=== PATIENT | male | born 1955 | race Caucasian/White ===

== ENCOUNTER 2017-10-22 14:57 | Inpatient (IN) | payer BC, OTHER ==
[~2017-10-22] VITALS: Ht 180.3 cm; Wt 69.9 kg
[2017-10-22 16:04] LABS: HEMOGLOBIN 13.8 g/dL (13.7-18.0)
[2017-10-22 16:17] LABS: ASPARTATE AMINO TRANSFERASE 33 U/L (15-37); BLOOD UREA NITROGEN 19 mg/dL (7-18)
[2017-10-22 16:32] LABS: DIFF TOTAL CELLS COUNTED 100 CELL DIFF
[2017-10-22 16:33] LABS: VERIFY COUNTS? YES
[2017-10-22] MEDS ORDERED: morphine SULFATE 10 MG/ML, 1ML ONE (17:59)
[2017-10-22] MEDS ORDERED: ONDANSETRON 2MG/ML, 2ML ONE (17:59)
[2017-10-22] MEDS ORDERED: SODIUM CHLORIDE 0.9% 1,000ML IVBOLUS ONE (19:00)
[2017-10-22] MEDS ORDERED: SODIUM CHLORIDE FLUSH 10ML SYR IVF ONE (19:00)
[2017-10-22] MEDS ORDERED: MORPHINE SULFATE 4 MG/ML, 1ML IVPush PRN (19:00)
[2017-10-22] MEDS ORDERED: ONDANSETRON 2MG/ML, 2ML IVPush ONE (19:00)
[2017-10-22] MEDS ORDERED: METO-99 PO (19:41)
[2017-10-22] MEDS ORDERED: ESCI10TA PO (19:41)
[2017-10-22] MEDS ORDERED: LEVO112T4 PO (19:41)
[2017-10-22] MEDS ORDERED: ATOR20TA PO (19:41)
[2017-10-22] MEDS ORDERED: TRAV5DRO EACHEYE (19:41)
[2017-10-22] MEDS ORDERED: BUDE10.2 INH (19:41)
[2017-10-22] MEDS ORDERED: AMLO5TAB2 PO (19:41)
[2017-10-22] MEDS ORDERED: LOSA100T6 PO (19:41)
[2017-10-22] MEDS ORDERED: morphine SULFATE 10 MG/ML, 1ML IVPush PRN (20:00)
[2017-10-22] MEDS ORDERED: TEMAZEPAM 15 MG CAPSULE PO PRN (20:00)
[2017-10-22] MEDS ORDERED: PHARMACY MAY ADJ FOR RENAL FX MC PRN (20:30)
[2017-10-22] MEDS: CIPROFLOXACIN/PMX 400MG/200ML 200 ML IV SCH (21:12)
[2017-10-22] MEDS: HEPARIN 5,000 UNITS/ML, 1ML SQ SCH (21:12)
[2017-10-22] MEDS: ATORVASTATIN 20 MG TABLET PO SCH (21:46)
[2017-10-22] MEDS: METOPROLOL TARTRATE 100 MG TABLET PO SCH (21:46)
[2017-10-22 21:51] VITALS: BP 143/90
[2017-10-22] MEDS: ONDANSETRON ODT 4 MG PO PRN (22:10)
[2017-10-22] MEDS: HYDROcodone/APAP 5/325 TABLET PO PRN (22:37)
[2017-10-22] MEDS: LATANOPROST OPHTH 0.005%, 2.5ML EACHEYE SCH (22:42)
[2017-10-23 01:04] VITALS: BP 155/90
[2017-10-23] MEDS: ONDANSETRON ODT 4 MG PO PRN (02:04)
[2017-10-23 04:06] LABS: HEMATOCRIT 38.7 % (39.2-51.8); HEMOGLOBIN 13.1 g/dL (13.7-18.0); WHITE BLOOD COUNT 12.6 x10^3/uL (3.4-10)
[2017-10-23 04:15] LABS: BLOOD UREA NITROGEN 13 mg/dL (7-18)
[2017-10-23] MEDS: SENNA/DOCUSATE TABLET PO SCH (04:19)
[2017-10-23] MEDS: HEPARIN 5,000 UNITS/ML, 1ML SQ SCH ×3 (05:36→20:45)
[2017-10-23 07:38] VITALS: BP 157/82
[2017-10-23 07:45] VITALS: BP 129/91
[2017-10-23] MEDS ORDERED: PROCHLORPERAZINE 5 MG/ML, 2ML IVPush ONE (08:30)
[2017-10-23] MEDS: CIPROFLOXACIN/PMX 400MG/200ML 200 ML IV SCH ×2 (08:58→20:40)
[2017-10-23] MEDS ORDERED: TRAVOPROST OPHTH 0.004%, 2.5ML EACHEYE SCH (09:00)
[2017-10-23] MEDS: CITALOPRAM 20 MG TABLET PO SCH (09:01)
[2017-10-23] MEDS: FLUTICASONE/VILANTEROL 200-25MCG/INH INH SCH (09:01)
[2017-10-23] MEDS: METOPROLOL TARTRATE 100 MG TABLET PO SCH ×2 (09:01→20:39)
[2017-10-23] MEDS: AMLODIPINE 5 MG TABLET PO SCH (09:02)
[2017-10-23] MEDS: LEVOTHYROXINE 112 MCG TABLET PO SCH (09:02)
[2017-10-23] MEDS: LOSARTAN 50MG TABLET PO SCH (09:02)
[2017-10-23] MEDS ORDERED: PROCHLORPERAZINE 5 MG TABLET PO PRN (10:30)
[2017-10-23] MEDS: HYDROcodone/APAP 5/325 TABLET PO PRN ×2 (13:58→23:44)
[2017-10-23 15:47] VITALS: BP 118/67
[2017-10-23 20:24] VITALS: BP 146/89
[2017-10-23] MEDS: LATANOPROST OPHTH 0.005%, 2.5ML EACHEYE SCH (20:39)
[2017-10-23] MEDS: ATORVASTATIN 20 MG TABLET PO SCH (20:39)
[2017-10-24 02:30] VITALS: BP 148/78
[2017-10-24] MEDS: HEPARIN 5,000 UNITS/ML, 1ML SQ SCH ×2 (05:00→12:19)
[2017-10-24 05:36] LABS: BLOOD UREA NITROGEN 11 mg/dL (7-18)
[2017-10-24] MEDS: LEVOTHYROXINE 112 MCG TABLET PO SCH (05:37)
[2017-10-24 05:57] LABS: HEMATOCRIT 37.8 % (39.2-51.8); HEMOGLOBIN 12.9 g/dL (13.7-18.0); WHITE BLOOD COUNT 8.9 x10^3/uL (3.4-10)
[2017-10-24 06:41] LABS: DIFF TOTAL CELLS COUNTED 200 CELL DIFF; VERIFY COUNTS? YES
[2017-10-24] MEDS: CIPROFLOXACIN/PMX 400MG/200ML 200 ML IV SCH (08:00)
[2017-10-24] MEDS: CITALOPRAM 20 MG TABLET PO SCH (08:01)
[2017-10-24] MEDS: FLUTICASONE/VILANTEROL 200-25MCG/INH INH SCH (08:01)
[2017-10-24] MEDS: AMLODIPINE 5 MG TABLET PO SCH (08:02)
[2017-10-24] MEDS: METOPROLOL TARTRATE 100 MG TABLET PO SCH (08:02)
[2017-10-24] MEDS: LOSARTAN 50MG TABLET PO SCH (08:02)
[2017-10-24] MEDS: SENNA/DOCUSATE TABLET PO SCH (08:03)
[2017-10-24] MEDS: HYDROcodone/APAP 5/325 TABLET PO PRN ×2 (08:20→08:22)
[2017-10-24 08:26] VITALS: BP 138/76
[2017-10-24] MEDS ORDERED: HYDR-883 PO (10:25)
[2017-10-24] MEDS ORDERED: CIPR500T87 PO (10:25)
== END 2017-10-24 12:46 | disposition home health service (06) | DRG 728 ==
LOC: ED 16:57 → EDIP 19:18 → 3NE 20:35 → DCLOUNGE 10-24 12:34
PROVIDERS: ADMIT Family Medicine; ATTEND Family Medicine
DX: N41.0 Acute prostatitis (principal); N17.9 Acute kidney failure, unspecified; I13.10 Hypertensive heart and chronic kidney disease without heart failure, with stage 1 through stage 4 chronic kidney disease, or unspecified chronic kidney disease; N18.9 Chronic kidney disease, unspecified; N40.1 Benign prostatic hyperplasia with lower urinary tract symptoms; D72.829 Elevated white blood cell count, unspecified; E03.9 Hypothyroidism, unspecified; E78.00 Pure hypercholesterolemia, unspecified; E78.5 Hyperlipidemia, unspecified; R33.8 Other retention of urine; R00.0 Tachycardia, unspecified; R73.03 Prediabetes; Z82.49 Family history of ischemic heart disease and other diseases of the circulatory system; Z87.442 Personal history of urinary calculi; Z98.49 Cataract extraction status, unspecified eye; Z88.0 Allergy status to penicillin
CPT/HCPCS: 36415; 74176; 80048; 80053; 81001; 85025; 87086; 96361; 96374; 96375; J0744; J1644; J2405; Q0162; J0780; J7030

== ENCOUNTER 2018-01-09 09:07 | Emergency (ER) | payer BC ==
[~2018-01-09] VITALS: Ht 180.3 cm; Wt 70.3 kg
[~2018-01-09 09:07] MED LIST: AMLO5TAB2 PO; ATOR20TA PO; BUDE10.2 INH; CIPR500T87 PO; ESCI10TA PO; HYDR-883 PO; LEVO112T4 PO; LOSA100T6 PO; METO-99 PO; TRAV5DRO EACHEYE
[2018-01-09] MEDS ORDERED: SODIUM CHLORIDE 0.9% 1,000 ML IV ONE (12:53)
[2018-01-09] MEDS ORDERED: ONDANSETRON 2MG/ML, 2ML ONE ×2 (12:59→16:44)
[2018-01-09] MEDS ORDERED: HYDROmorphone 2 MG/ML, 1ML ONE ×2 (12:59→14:20)
[2018-01-09] MEDS ORDERED: ONDANSETRON 2MG/ML, 2ML IVPush ONE ×2 (13:00→17:00)
[2018-01-09] MEDS ORDERED: SODIUM CHLORIDE FLUSH 10ML SYR IVF ONE (13:00)
[2018-01-09] MEDS: HYDROmorphone 1 MG/ML, 1ML IVPush PRN ×2 (13:14→14:22)
[2018-01-09 13:20] LABS: BASOPHILS # (AUTO) 0.01 x10^3/uL (0-0.1); BASOPHILS % (AUTO) 0 % (0-1); EOSINOPHILS # (AUTO) 0.09 x10^3/uL (0-0.4); EOSINOPHILS % (AUTO) 1 % (1-7); LYMPHOCYTES # (AUTO) 1.26 x10^3/uL (1-3.4); LYMPHOCYTES % (AUTO) 9 % (22-44); MD NO; MEAN CORPUSCULAR HEMOGLOBIN 30.9 pg (27.5-34.5); MEAN CORPUSCULAR VOLUME 90.8 fL (81-97); MEAN PLATELET VOLUME 8.3 fL (7.4-10.4); MONOCYTES # (AUTO) 0.53 x10^3/uL (0.2-0.8); MONOCYTES % (AUTO) 4 % (2-9); NEUTROPHILS # (AUTO) 12.39 x10^3/uL (1.8-6.8); NEUTROPHILS % (AUTO) 87 % (42-75); PLATELET COUNT 356 x10^3/uL (130-400); RED CELL DISTRIBUTION WIDTH 13.9 % (9.4-14.8)
[2018-01-09 13:27] LABS: INTERNATIONAL NORMALIZED RATIO 1.02 (0.93-1.1); PROTHROMBIN TIME 10.5 Seconds (9.6-11.5)
[2018-01-09 13:31] LABS: ALANINE AMINOTRANSFERASE 40 U/L (12-78); ALBUMIN 3.7 g/dL (3.4-5.0); ANION GAP 11 mmol/L (5-15); CALCIUM 8.8 mg/dL (8.5-10.1); CHLORIDE 109 mmol/L (98-107); CREATININE 1.74 mg/dL (0.7-1.3)
[2018-01-09 13:33] LABS: ALKALINE PHOSPHATASE 116 U/L (45-117); BILIRUBIN,TOTAL 0.8 mg/dL (0.2-1.0); TOTAL PROTEIN 8.5 g/dL (6.4-8.2)
[2018-01-09 15:03] LABS: MICROSCOPIC AUTO
[2018-01-09 15:04] LABS: CULTURE INDICATED? NO
[2018-01-09 16:48] VITALS: BP 150/84
== END 2018-01-09 17:09 | disposition home or self-care (01) ==
LOC: ED 15:02
DX: N13.2 Hydronephrosis with renal and ureteral calculous obstruction (principal); R31.9 Hematuria, unspecified; N17.9 Acute kidney failure, unspecified; I10 Essential (primary) hypertension; E11.9 Type 2 diabetes mellitus without complications; E78.00 Pure hypercholesterolemia, unspecified; E03.9 Hypothyroidism, unspecified
CPT/HCPCS: 36415; 74176; 80053; 81001; 83605; 83690; 85025; 85610; 85730; 87040; 96361; 96374; 96375; 96376; 99285; J1170; J2405; J7030